=== PATIENT | female | born 1940 | race Caucasian/White ===

== ENCOUNTER 2021-08-19 17:19 | Observation (INO) ==
[2021-08-19] MEDS ORDERED: Ibuprofen 400 MG TABLET PO ONE (17:40)
[2021-08-19 19:19] LABS: Basophils # 0.1 K/mcL (0.0-0.2); Basophils % 0.6 %; Eosinophils # 0.2 K/mcL (0.0-0.6); Eosinophils % 1.9 %; Hematocrit 38.2 % (35.3-44.9); Hemoglobin 12.4 g/dL (11.5-15.4); Immature Granulocytes % 0.4 % (0-4); Lymphocytes # 0.9 K/mcL (0.6-4.6); Lymphocytes % 11.6 %; Mean Corpuscular HGB Conc 32.5 g/dL (31.6-35.5); Mean Corpuscular Hemoglobin 30.7 pg (28.0-33.3); Mean Corpuscular Volume 94.6 fL (83.0-100.0); Mean Platelet Volume 9.6 fL (9.4-12.4); Monocytes # 0.5 K/mcL (0.0-1.3); Neutrophils # 6.2 K/mcL (1.6-8.9); Platelet Count 211 K/mcL (140-400); Red Blood Count 4.04 M/mcL (3.82-4.97); Red Cell Distribution Width 13.6 % (11.5-14.5); Segmented Neutrophils % 79.5 %; White Blood Count 7.8 K/mcL (4.3-11.1)
[2021-08-19 19:39] LABS: BUN/Creatinine Ratio 26 (6-26); Blood Urea Nitrogen 22 mg/dL (8-23); Calcium 9.5 mg/dL (8.6-10.3); Carbon Dioxide 25 mEq/L (23-29); Chloride 103 mEq/L (98-107); Glucose 110 mg/dL (70-105); Osmolality,Calculated 286 (280-300); Potassium 3.9 mEq/L (3.5-5.1); Sodium 136 mEq/L (136-145); eGFR For African Americans > 60 (> 60); eGFR For Non-African Americans > 60 (> 60)
[2021-08-19] MEDS ORDERED: Ondansetron 4 MG/2 ML VIAL IVP PRN (21:03)
[2021-08-19] MEDS ORDERED: Naloxone 0.4 MG/ML INJ IVP PRN (21:03)
[2021-08-19] MEDS ORDERED: *HR* OxyCODONE Immed Rel 5 MG TABLET PO PRN (21:03)
[2021-08-19] MEDS ORDERED: Melatonin 3 MG TABLET PO PRN (21:03)
[2021-08-19] MEDS ORDERED: *HR* HYDROcodone/Acet 5/325 mg TABLET PO PRN (21:03)
[2021-08-19] MEDS: Ibuprofen 400 MG TABLET PO PRN (23:24)
[2021-08-20] MEDS: Ibuprofen 400 MG TABLET PO PRN ×3 (05:25→21:17)
[2021-08-20] MEDS: *HR* Enoxaparin 40 MG/0.4 ML SYRINGE SQ SCH (05:26)
[2021-08-20] MEDS: cilostazoL 100 MG TABLET PO SCH ×2 (09:19→21:07)
[2021-08-20] MEDS: Aspirin Enteric Coated 81 MG Tablet PO SCH (09:20)
[2021-08-20] MEDS: Cholecalciferol (D-3) 1,000 UNIT (25MCG) TABLET PO SCH (09:20)
[2021-08-20] MEDS: Cyanocobalamin (B-12) 1,000 MCG TABLET PO SCH (09:20)
[2021-08-20] MEDS: Multivit/Ca/Min/Fe/FA 1 TAB TABLET PO SCH (09:20)
[2021-08-20] MEDS ORDERED: NON-FORMULARY MEDICATION 1 EACH EACH (Alendronate Sodium [Fosamax] 70 MG Tablet) PO SCH (13:45)
[2021-08-21 05:26] LABS: BUN/Creatinine Ratio 28 (6-26); Blood Urea Nitrogen 25 mg/dL (8-23); Calcium 8.7 mg/dL (8.6-10.3); Carbon Dioxide 24 mEq/L (23-29); Chloride 107 mEq/L (98-107); Glucose 103 mg/dL (70-105); Osmolality,Calculated 289 (280-300); Potassium 3.9 mEq/L (3.5-5.1); Sodium 137 mEq/L (136-145); eGFR For African Americans > 60 (> 60); eGFR For Non-African Americans > 60 (> 60)
[2021-08-21] MEDS: *HR* Enoxaparin 40 MG/0.4 ML SYRINGE SQ SCH (06:06)
[2021-08-21 06:31] LABS: Basophils % 0.6 %; Eosinophils # 0.2 K/mcL (0.0-0.6); Eosinophils % 4.6 %; Hematocrit 30.4 % (35.3-44.9); Immature Granulocytes % 0.2 % (0-4); Lymphocytes # 1.3 K/mcL (0.6-4.6); Lymphocytes % 25.3 %; Mean Corpuscular HGB Conc 32.9 g/dL (31.6-35.5); Mean Corpuscular Hemoglobin 31.1 pg (28.0-33.3); Mean Corpuscular Volume 94.4 fL (83.0-100.0); Mean Platelet Volume 9.4 fL (9.4-12.4); Monocytes # 0.5 K/mcL (0.0-1.3); Monocytes % 9.8 %; Neutrophils # 3.1 K/mcL (1.6-8.9); Platelet Count 169 K/mcL (140-400); Red Blood Count 3.22 M/mcL (3.82-4.97); Red Cell Distribution Width 13.8 % (11.5-14.5); Segmented Neutrophils % 59.5 %; White Blood Count 5.2 K/mcL (4.3-11.1)
[2021-08-21] MEDS: cilostazoL 100 MG TABLET PO SCH ×2 (09:47→20:53)
[2021-08-21] MEDS: Cyanocobalamin (B-12) 1,000 MCG TABLET PO SCH (09:47)
[2021-08-21] MEDS: Cholecalciferol (D-3) 1,000 UNIT (25MCG) TABLET PO SCH (09:47)
[2021-08-21] MEDS: Aspirin Enteric Coated 81 MG Tablet PO SCH (09:47)
[2021-08-21] MEDS: Multivit/Ca/Min/Fe/FA 1 TAB TABLET PO SCH (09:47)
[2021-08-21] MEDS: Ibuprofen 400 MG TABLET PO PRN (20:53)
[2021-08-22] MEDS: Ibuprofen 400 MG TABLET PO PRN ×4 (03:28→23:27)
[2021-08-22 04:02] LABS: Basophils % 0.6 %; Eosinophils # 0.2 K/mcL (0.0-0.6); Eosinophils % 3.9 %; Hematocrit 30.5 % (35.3-44.9); Hemoglobin 9.7 g/dL (11.5-15.4); Immature Granulocytes % 0.4 % (0-4); Lymphocytes # 1.5 K/mcL (0.6-4.6); Lymphocytes % 26.8 %; Mean Corpuscular HGB Conc 31.8 g/dL (31.6-35.5); Mean Corpuscular Volume 94.4 fL (83.0-100.0); Monocytes # 0.6 K/mcL (0.0-1.3); Monocytes % 10.1 %; Neutrophils # 3.2 K/mcL (1.6-8.9); Platelet Count 165 K/mcL (140-400); Red Blood Count 3.23 M/mcL (3.82-4.97); Red Cell Distribution Width 13.9 % (11.5-14.5); Segmented Neutrophils % 58.2 %; White Blood Count 5.4 K/mcL (4.3-11.1)
[2021-08-22] MEDS: Cyanocobalamin (B-12) 1,000 MCG TABLET PO SCH (09:28)
[2021-08-22] MEDS: cilostazoL 100 MG TABLET PO SCH ×2 (09:28→20:12)
[2021-08-22] MEDS: Multivit/Ca/Min/Fe/FA 1 TAB TABLET PO SCH (09:28)
[2021-08-22] MEDS: Aspirin Enteric Coated 81 MG Tablet PO SCH (09:28)
[2021-08-22] MEDS: Cholecalciferol (D-3) 1,000 UNIT (25MCG) TABLET PO SCH (09:28)
[2021-08-23 06:48] VITALS: TEMP 97.6
[2021-08-23] MEDS: Cholecalciferol (D-3) 1,000 UNIT (25MCG) TABLET PO SCH (08:01)
[2021-08-23] MEDS: Cyanocobalamin (B-12) 1,000 MCG TABLET PO SCH (08:01)
[2021-08-23] MEDS: Multivit/Ca/Min/Fe/FA 1 TAB TABLET PO SCH (08:02)
[2021-08-23] MEDS: Ibuprofen 400 MG TABLET PO PRN (08:02)
[2021-08-23] MEDS: cilostazoL 100 MG TABLET PO SCH (08:02)
[2021-08-23] MEDS: Aspirin Enteric Coated 81 MG Tablet PO SCH (08:03)
[2021-08-23 11:29] VITALS: BP 107/69; PULSE 80; O2SAT 100
== END 2021-08-23 16:24 | disposition home or self-care (01) ==
LOC: EMEROOARM 17:19 → 4WAOSI 17:19 → SUATTDRO 20:00 → 4WAOSI 20:39
PROVIDERS: ADMIT Internal Medicine; ATTEND Internal Medicine